=== PATIENT | female | born 1965 | race Caucasian/White ===

== ENCOUNTER → 2017-05-18 | Outpatient (CLI) | payer OTHER ==
[~2017-05-18] MED LIST: ALBIPROI; ALBU90OI; ALBU90OI6 INH; BUSP10 PO; CEPH500 PO; CREON PO; CRUTCH4 USE; DIAZ5; DIPATR PO; DORN1IH; DULO30 PO; FORM12IH; FROV2.5; HYDACE5 PO; HYDR1TAB94 PO; LORA1 PO; METF500 PO; NAPR220 PO; SERT100; UNISOM25 MG PO; [UNRECOGNIZED DRUG - OTHER]
== END ==
LOC: PLD 12:15 → LAB SHORT 12:15
DX: N95.0 Postmenopausal bleeding (principal)
CPT/HCPCS: 88305

== ENCOUNTER 2021-04-26 09:00 | Day surgery (SDC) | payer OTHER ==
[~2021-04-26] VITALS: Ht 175.3 cm; Wt 91.6 kg
[2021-04-26] MEDS ORDERED: SERT50 PO (09:28)
[2021-04-26] MEDS ORDERED: JANUMET XR 1001 EAC1 PO (09:28)
--- NOTE | 2021-04-26 13:47 | NUR ---
04/26/21 1347 [facility] MEDIPORT PLACEMENT CALL REQUEST AT 11:11. XRAY BY HÉCTOR. XRAY READ BY KINGSLEY Farooq AT 11:20 STATES PLACEMENT CORRECT. PT NPO UPTILL CALL GIVING OK. PT DC AT 11:45. END NOTE ORSC.RDS
== END 2021-04-26 11:45 | disposition home or self-care (01) ==
LOC: ORSCSDS 09:00
PROVIDERS: Surgery
PROC: B543ZZA Ultrasonography of Right Jugular Veins, Guidance (ICD-10-PCS; principal; 2021-04-26 10:00)
PROC: 05HM33Z Insertion of Infusion Device into Right Internal Jugular Vein, Percutaneous Approach (ICD-10-PCS; principal; 2021-04-26 10:00)
DX: C20 Malignant neoplasm of rectum (principal); G47.33 Obstructive sleep apnea (adult) (pediatric); E11.9 Type 2 diabetes mellitus without complications; F41.8 Other specified anxiety disorders; Z79.84 Long term (current) use of oral hypoglycemic drugs; Z79.899 Other long term (current) drug therapy
CPT/HCPCS: 77001; 82947; C1788; J0690; J1642; J1885; J2250; J3010; J7120

== ENCOUNTER 2022-05-20 09:52 | Inpatient (IN) | payer OTHER ==
[~2022-05-20] VITALS: Ht 175.3 cm; Wt 69.4 kg
[~2022-05-20 09:52] MED LIST changes: -BUSP10 PO; +Buspirone HCl15 MG PO; +JANUMET XR 1001 EAC1 PO; +SERT50 PO
[2022-05-20] MEDS ORDERED: Adipex-P37.5 M1 PO (10:19)
[2022-05-20] MEDS ORDERED: KALYDECO150 MG PO (10:21)
[2022-05-20] MEDS ORDERED: UNISOM PM PAIN1 EACH PO (10:21)
[2022-05-20 11:27] LABS: BASOPHILS ABSOLUTE AUTO 0.02 K/mm3 (0.00-0.23); BASOPHILS PERCENT AUTO 0 % (0-2); EOSINOPHILS ABSOLUTE AUTO 0.03 K/mm3 (0.00-0.68); EOSINOPHILS PERCENT AUTO 1 % (0-6); Hematocrit 31.7 % (33.0-51.0); Hemoglobin 9.7 g/dL (11.5-16.0); IMMATURE GRAN ABSOLUTE AUTO 0.04 K/mm3 (0.00-0.10); IMMATURE GRAN PERCENT AUTO 1 % (0-1); LYMPHOCYTES ABSOLUTE AUTO 0.69 K/mm3 (0.84-5.20); LYMPHOCYTES PERCENT AUTO 11 % (21-46); MONOCYTES ABSOLUTE AUTO 0.34 K/mm3 (0.16-1.47); MONOCYTES PERCENT AUTO 5 % (4-13); Mean Corpuscular HGB 23.2 pg (26.0-34.0); Mean Corpuscular HGB Conc 30.6 g/dL (31.5-36.5); Mean Corpuscular Volume 76 fL (80-100); Mean Platelet Volume 8.8 fL (9.1-12.4); NEUTROPHILS ABSOLUTE AUTO 5.13 K/mm3 (1.96-9.15); NEUTROPHILS PERCENT AUTO 82 % (41-73); Platelet Count 193 K/mm3 (150-400); RDW Coefficient Variation 17.4 % (11.7-14.2); RDW Standard Deviation 47.7 fL (35.1-46.3); Red Blood Cell Count 4.18 M/mm3 (3.80-5.20); White Blood Cell Count 6.25 K/mm3 (4.00-11.30)
[2022-05-20 11:39] LABS: Albumin, Blood 2.4 g/dL (3.4-5.0); Albumin/Globulin Ratio 0.5 (0.8-1.8); Bilirubin, Total 0.3 mg/dL (0.1-1.0); Bun/Creatinine Ratio 16.2 (12.0-20.0); Calcium, Blood 8.6 mg/dL (8.5-10.1); Creatinine, Blood 0.5 mg/dL (0.40-1.00); Globulin, Blood 5.2 g/dL (2.2-4.0); Potassium, Blood 3.7 mmol/L (3.5-5.5); Total Protein, Blood 7.6 g/dL (6.4-8.2)
[2022-05-20 12:11] LABS: International Normalized Ratio 1.26
--- NOTE | 2022-05-20 14:45 | NUR ---
ARRIVAL TO UNIT 4 PERSON SLIDE TO HOSPITAL BED. ASSESSMENT CHARTED. PLAN TO CONTACT ORTHO TO ADDRESS IF SURGERY TODAY OR PT CAN EAT. PLEASANT & UPBEAT. NO BRUISING TO R HIP. LACEY PP.
--- NOTE | 2022-05-20 18:36 | NUR ---
SHIFT SUMMARY SINCE ARRIVAL, PAIN HAS BEEN TOLERABLE. NON PRODUCTIVE COUGH. 4L NC. ORTHO CONSULTED. PLAN FOR OR TOMORROW.
[2022-05-21 02:31] LABS: Source, Urine Foley catheter
[2022-05-21 03:42] LABS: Appearance, Urine Clear (Clear); Color, Urine Yellow (P-Yellow)
[2022-05-21 03:44] LABS: Bilirubin, Urine Neg (Neg); Blood, Urine Neg (Neg); Glucose Qualitative, Urine Neg (Neg); Ketones, Urine Neg (Neg); Leukocyte Esterase, Urine Neg (Neg); Nitrite, Urine Neg (Neg); Protein, Urine Neg (Neg); Specific Gravity, Urine 1.015 (1.003-1.022); Urobilinogen, Urine NORM (Normal)
[2022-05-21 05:21] LABS: Hematocrit 29.6 % (33.0-51.0); Mean Corpuscular HGB 23.4 pg (26.0-34.0); Mean Corpuscular HGB Conc 30.4 g/dL (31.5-36.5); Mean Corpuscular Volume 77 fL (80-100); Mean Platelet Volume 8.9 fL (9.1-12.4); Platelet Count 169 K/mm3 (150-400); RDW Coefficient Variation 17.2 % (11.7-14.2); RDW Standard Deviation 47.8 fL (35.1-46.3); Red Blood Cell Count 3.84 M/mm3 (3.80-5.20); White Blood Cell Count 5.42 K/mm3 (4.00-11.30)
[2022-05-21 05:53] LABS: Bun/Creatinine Ratio 17.7 (12.0-20.0); Calcium, Blood 8.3 mg/dL (8.5-10.1); Creatinine, Blood 0.45 mg/dL (0.40-1.00); Potassium, Blood 3.8 mmol/L (3.5-5.5)
--- NOTE | 2022-05-21 06:27 | NUR ---
Patient given PRN pain meds. Patient states severe pain when moving, batista placed. Patient NPO at midnight, maint. fluid IV fluid started, preop CHG bath given. Patient states she is comfortable; slept well overnight. No acute safety concerns at this time.
--- NOTE | 2022-05-21 14:01 | NUR ---
Surgical site prepped with 2% Chlorhexidine cloth wipe. History, Chart, Medications and Allergies reviewed before start of procedure. Pre-Op teaching done. Pt verbalizes understanding. Patient confirms NPO status and agrees with scheduled surgery.
--- NOTE | 2022-05-21 16:31 | NUR ---
SHIFT SUMMARY: PATIENT JUST CAME BACK FROM PACU TODAY AT 1630. POD 0 RIGHT HIP NAILING PATIENT IS DROWSY BUT IS ABLE TO ANSWER QUESTIONS APPROPRIATELY WHEN ASKED. PATIENT DENIES PAIN AT THIS TIME. HER RIGHT HIP HAS 2 GAUZE WITH FOAM DRESSING THAT ARE C/D/I. SHE IS ABLE TO MOVE FINGERS AND TOES WHEN ASKED. DENIES ANY NEW NUMBNESS OR TINGLING (HX OF NEUROPATHY). SHE IS TOLERATING SMALL SIPS OF ICED WATER AT THIS TIME. FRIEND IS AT BEDSIDE. CALL LIGHT WITHIN REACH.
--- NOTE | 2022-05-22 05:33 | NUR ---
SHIFT SUMMARY PT POD 0 FOR RIGHT HIP NAILING. PT OVERALL HAS DONE WELL OVERNIGHT. SHE HAS SOME PAIN AT THE START OF THE SHIFT THAT WAS MANANGED WITH NORCO AND FLEXERIL. PT PRODUCING ADEQUATE URINE, STEWART IN PLACE DRAINING. PT TOLERATING PO INTAKE. POST OP VITALS STABLE. BULKY DRESSING INTACT. CALL LIGHT WITHIN REACH.
--- NOTE | 2022-05-22 16:34 | NUR ---
SHIFT SUMMARY PT A&OX4, VSS/2L-BASE, KASANDRA PO, STEWART PATENT & DRAINING YELLOW URINE/STAT LOCK ON/OFF FLOOR, STAND/PIVOT-SBA FWW & GB/UP TO CHAIR/WBAT, PAIN MANAGED WITH OXY 10 MG Q4 AND FLEXERIL. POD1 R HIP NAILING, BULKY DRESSING DRY/INTACT. WILL REPORT TO ONCOMING NOC RN.
--- NOTE | 2022-05-23 04:32 | NUR ---
SHIFT SUMMARY NO NEW ISSUES. PT COMPLAINS OF HIP AND NECK PAIN. PAIN TX PER EMAR WITH RELIEF. PT PROVIDED WITH ICE PACKD AND K PAD. PT SLEPT OFF AND ON THROUGHOUT THE SHIFT, PT REMAINS ON O2 AND DENIES SOB. CALL LIGHT IN REACH.
--- NOTE | 2022-05-23 16:25 | NUR ---
SHIFT SUMMARY PT A&OX4, VSS/2L NC BASELINE, KASANDRA PO, VOIDING, AMB SBA FWW & GB TO BRP/CHAIR AND IN HALLWAY, UP TO CHAIR T/O SHIFT, PAIN MANAGED WITH OXY 10 MG AND FLEXERIL 5 MG. POD2 R HIP NAILING, AQUACEL DRESSING APPLIED TODAY, TEDS ON, WBAT. WILL REPORT TO ONCOMING NOC RN.
--- NOTE | 2022-05-24 04:43 | NUR ---
SHIFT SUMMARY POD #3 R HIP NAILING, PATIENT IS AOX4, ABLE TO AMBULATE W/ 1 ASSIST, GB, FWW. TOLERATING PO INTAKE. AQUACEL X2 IN PLACE, C/D/I. IVF ARE RUNNING, TOLERATE PO INTAKE, VOIDING. MEDICATED FOR PAIN T/O SHIFT. DENIES N/V. VITALS STABLE. PLAN FOR DISCHARGE W/ HOME HEALTH. CALL LIGHT IN REACH, WILL REPORT TO DAY RN.
[2022-05-24] MEDS ORDERED: OXYC5 PO (10:02)
[2022-05-24] MEDS ORDERED: Cyclobenzaprine5 MG PO (10:02)
--- NOTE | 2022-05-24 12:30 | NUR ---
DISCHARGE PATIENT CLEARED TO D/C HOME WITH HOME HEALTH. POD 3 RIGHT HIP PINNING. 2 AQUACEL DRESSINGS TO R HIP, C/D/I. PAIN MANAGED PER EMAR. AMBULATING WELL TO BATHROOM 1P MIN ASSIST WITH FWW & GB. EATING, DRINKING, & VOIDING WELL. DISCUSSED DISCHARGE INSTRUCTIONS WITH PATIENT. EDUCATED ON AQUACEL DRESSINGS AND SENT WITH PATIENT. PATIENT AWAITING RIDE TO [employer].
--- NOTE | 2022-05-24 15:35 | NUR ---
ESCORTED OUT VIA W/C. SENT WITH AQUACEL DRESSINGS, DISCHARGE INSTRUCTIONS, AND PATIENTS PORTABLE O2.
== END 2022-05-24 15:30 | disposition home health service (06) | DRG 481 ==
LOC: ER 09:52 → SURS 12:38
PROVIDERS: Nurse Practitioner Acute Care; Orthopaedic Surgery; Student in an Organized Health Care Education/Training Program; ADMIT Internal Medicine
PROC: 0QS636Z Reposition Right Upper Femur with Intramedullary Internal Fixation Device, Percutaneous Approach (ICD-10-PCS; principal; 2022-05-21 14:00)
DX: S72.144A Nondisplaced intertrochanteric fracture of right femur, initial encounter for closed fracture (principal); E84.9 Cystic fibrosis, unspecified; Z28.21 Immunization not carried out because of patient refusal; K58.9 Irritable bowel syndrome, unspecified; E11.9 Type 2 diabetes mellitus without complications; F41.9 Anxiety disorder, unspecified; K74.60 Unspecified cirrhosis of liver; G89.29 Other chronic pain; K75.81 Nonalcoholic steatohepatitis (NASH); M50.323 Other cervical disc degeneration at C6-C7 level; J45.909 Unspecified asthma, uncomplicated; Z85.048 Personal history of other malignant neoplasm of rectum, rectosigmoid junction, and anus; Z92.3 Personal history of irradiation; Z92.21 Personal history of antineoplastic chemotherapy; Z90.49 Acquired absence of other specified parts of digestive tract; Z98.890 Other specified postprocedural states; Z88.2 Allergy status to sulfonamides; Z79.899 Other long term (current) drug therapy; W01.0XXA Fall on same level from slipping, tripping and stumbling without subsequent striking against object, initial encounter; Y92.009 Unspecified place in unspecified non-institutional (private) residence as the place of occurrence of the external cause
CPT/HCPCS: 36415; 72040; 73502; 73552; 73700; 80048; 80053; 81003; 82947; 85025; 85027; 85610; 85730; 93005; 93010; 94760; 96374; 96375; 96376; 97110; 97116; 97162; 97530; 99285-25; A9270; J0690; J1170; J1885; J2250; J2704; J3010; J7030; J7050; J7120

== ENCOUNTER 2022-06-06 12:27 | Inpatient (IN) | payer OTHER ==
[~2022-06-06] VITALS: Ht 167.6 cm; Wt 66.3 kg
[~2022-06-06 12:27] MED LIST changes: +Adipex-P37.5 M1 PO; +Cyclobenzaprine5 MG PO; +KALYDECO150 MG PO; +OXYC5 PO; +UNISOM PM PAIN1 EACH PO
[2022-06-06 12:44] LABS: Bicarbonate Venous 29.8 mmol/L (24.0-30.0); PCO2 Venous 81.6 mmHg (38-42)
[2022-06-06 12:45] LABS: pH Blood Venous 7.25 (7.34-7.37)
[2022-06-06 13:08] LABS: Hematocrit 31.6 % (33.0-51.0); Hemoglobin 9.4 g/dL (11.5-16.0); Mean Corpuscular HGB 23.2 pg (26.0-34.0); Mean Corpuscular HGB Conc 29.7 g/dL (31.5-36.5); Mean Corpuscular Volume 78 fL (80-100); Mean Platelet Volume 8.7 fL (9.1-12.4); NRBC ABSOLUTE 0.02 K/mm3 (0.00-0.02); NRBC Auto 0.2 /100 WBC (0.0-0.2); Platelet Count 281 K/mm3 (150-400); RDW Coefficient Variation 16.8 % (11.7-14.2); RDW Standard Deviation 47.8 fL (35.1-46.3); Red Blood Cell Count 4.06 M/mm3 (3.80-5.20); White Blood Cell Count 11.15 K/mm3 (4.00-11.30)
[2022-06-06 13:33] LABS: Albumin/Globulin Ratio 0.3 (0.8-1.8); Bilirubin, Total 1.1 mg/dL (0.1-1.0); Bun/Creatinine Ratio 30.9 (12.0-20.0); Calcium, Blood 9.3 mg/dL (8.5-10.1); Creatinine, Blood 0.42 mg/dL (0.40-1.00); Globulin, Blood 5.8 g/dL (2.2-4.0); Total Protein, Blood 7.8 g/dL (6.4-8.2)
[2022-06-06 13:44] LABS: BAND PERCENT MAN 60 % (0-8); BASOPHILS PERCENT MAN 0 % (0-2); EOSINOPHILS PERCENT MAN 0 % (0-6); LYMPHOCYTES ABSOLUTE MAN 1.44 K/mm3 (0.84-5.20); LYMPHOCYTES PERCENT MAN 13 % (21-46); METAMYELOCYTE ABSOLUTE MAN 0.11 K/mm3 (0.00-0.00); METAMYELOCYTE PERCENT MAN 1 % (0-0); MONOCYTES ABSOLUTE MAN 0.55 K/mm3 (0.16-1.47); MONOCYTES PERCENT MAN 5 % (4-13); NEUTROPHILS ABSOLUTE MAN 9.03 K/mm3 (1.96-9.15); SEG NEUTROPHILS PERCENT MAN 21 % (41-73); TOTAL CELLS COUNTED 100
[2022-06-06 14:32] LABS: Influenza A, PCR NEGATIVE (NEGATIVE); Influenza B, PCR NEGATIVE (NEGATIVE); Resp Syncytial Virus, PCR NEGATIVE (NEGATIVE)
[2022-06-06 14:37] LABS: SARS-Cov-2 (COVID-19) PCR, MMC POSITIVE (NEGATIVE)
[2022-06-06 15:21] LABS: Base Excess Venous 9.7 mmol/L; Bicarbonate Venous 31.4 mmol/L (24.0-30.0); pH Blood Venous 7.28 (7.34-7.37)
[2022-06-06 17:47] LABS: Source, Urine Foley catheter
[2022-06-06 17:57] LABS: Appearance, Urine Clear (Clear); Bilirubin, Urine Neg (Neg); Blood, Urine 2+ (Neg); Color, Urine Yellow (P-Yellow); Glucose Qualitative, Urine Neg (Neg); Ketones, Urine 1+ (Neg); Leukocyte Esterase, Urine Neg (Neg); Nitrite, Urine Neg (Neg); Protein, Urine 1+ (Neg); Urobilinogen, Urine 2+ (Normal)
[2022-06-06 18:16] LABS: Base Excess Venous 6.9 mmol/L; Bicarbonate Venous 29.5 mmol/L (24.0-30.0)
[2022-06-06 18:17] LABS: pH Blood Venous 7.28 (7.34-7.37)
[2022-06-06 18:32] LABS: Bacteria Many /hpf; Red Blood Cells, Urine 0-2 /hpf (0-2); Squamous Epithelial Cells Few /hpf (Few)
--- NOTE | 2022-06-06 19:13 | NUR ---
PT ARRIVED TO UNIT @ 1700 LETHARGIC RR IN THE 40S AND HR IN THE 120S TO 140 AND BECAME RESTLESS TRYING TO TAKE OFF BIPAP. DR WAS MADE AWARE AND PT WAS INTUBATED. SKIN ON ADMISSIN TO UNIT EXCORIATION NOTED ON COCCYX AND MELISSA TO HER RIGHT HIP. PT RESTING ON VENTILATOR REPORT GIVEN TO ON COMING NURSE.
[2022-06-07 04:53] LABS: Hematocrit 24.4 % (33.0-51.0); Hemoglobin 7.5 g/dL (11.5-16.0); Mean Corpuscular HGB 23.4 pg (26.0-34.0); Mean Corpuscular HGB Conc 30.7 g/dL (31.5-36.5); Mean Corpuscular Volume 76 fL (80-100); Mean Platelet Volume 9.1 fL (9.1-12.4); Platelet Count 188 K/mm3 (150-400); RDW Coefficient Variation 17.1 % (11.7-14.2); RDW Standard Deviation 47.5 fL (35.1-46.3); Red Blood Cell Count 3.21 M/mm3 (3.80-5.20); White Blood Cell Count 8.76 K/mm3 (4.00-11.30)
[2022-06-07 05:14] LABS: Albumin, Blood 1.5 g/dL (3.4-5.0); Albumin/Globulin Ratio 0.3 (0.8-1.8); Bilirubin, Direct 0.6 mg/dL (0.0-0.3); Bilirubin, Indirect 0.2 mg/dL (0.1-0.7); Bilirubin, Total 0.8 mg/dL (0.1-1.0); Bun/Creatinine Ratio 36.1 (12.0-20.0); Calcium, Blood 8.4 mg/dL (8.5-10.1); Creatinine, Blood 0.42 mg/dL (0.40-1.00); Globulin, Blood 4.7 g/dL (2.2-4.0); Phosphorus, Blood 2.4 mg/dL (2.5-4.9); Potassium, Blood 3.7 mmol/L (3.5-5.5); Total Protein, Blood 6.2 g/dL (6.4-8.2)
[2022-06-07 05:40] LABS: BAND PERCENT MAN 25 % (0-8); BASOPHILS PERCENT MAN 0 % (0-2); EOSINOPHILS PERCENT MAN 0 % (0-6); LYMPHOCYTES ABSOLUTE MAN 0.17 K/mm3 (0.84-5.20); LYMPHOCYTES PERCENT MAN 2 % (21-46); METAMYELOCYTE ABSOLUTE MAN 0.17 K/mm3 (0.00-0.00); METAMYELOCYTE PERCENT MAN 2 % (0-0); MONOCYTES ABSOLUTE MAN 0.52 K/mm3 (0.16-1.47); MONOCYTES PERCENT MAN 6 % (4-13); MYELOCYTE ABSOLUTE MAN 0.08 K/mm3 (0.00-0.00); MYELOCYTE PERCENT MAN 1 % (0-0); NEUTROPHILS ABSOLUTE MAN 7.79 K/mm3 (1.96-9.15); SEG NEUTROPHILS PERCENT MAN 64 % (41-73); TOTAL CELLS COUNTED 100
--- NOTE | 2022-06-07 06:45 | NUR ---
SHIFT SUMMARY NO ACUTE CHANGES DURING SHIFT. REMAINS INTUBATED- AC/VC+ 24/400/8/50%. SEDATED WITH PROPOFOL AT 40MCG/KG/MIN. NOT FOLLOWING COMMANDS. BILATERAL SOFT WRIST RESTRAINTS IN PLACE TO PREVENT SELF-EXTUBATION. MONITOR SHOWS ST, RATE 100-120S T/O NOC. BP STABLE WITH LEVOPHED- NOW INFUSING AT 2MCG/MIN. NS INFUSING AT 125MLS/HR. OG WITH PIVOT 1.5 AT 30MLS/HR (GOAL IS 40MLs/HR). INCONTINENT OF LOOSE STOOL X 2. STEWART PATENT AND DRAINING TO GRAVITY. RIGHT HIP WITH MELISSA INTACT. MEDIPORT TO RIGHT CHEST ACCESSED. REMAINS IN ISOLATION FOR COVID-19. WILL REPORT TO ONCOMING RN WHEN AVAILABLE.
--- NOTE | 2022-06-07 07:31 | NUR ---
ASSUMED CARE: PT INTUBATED AND SEDATED. VENT SETTINGS AC/VC+ AT 24/400/8/50%. SATURATING 95% WITH THIS. SINUS TACH AT 112 AT THIS TIME. OG IN PLACE WITH TF RUNNING. TEMP STEWART WITH CLEAR YELLOW URINE DRAINING. SEDATED WITH 40MCG/KG/MIN PROPOFOL. LEVOPHED INFUSING AT 2MCG/MIN FOR MAP GREATER THAN 65. ALSO RECEIVING NS AT 125/HR. ADMINISTERED 2MG ATIVAN THIS AM FOR AGITATION. NO FURTHER NEEDS AT THIS TIME.
--- NOTE | 2022-06-07 09:40 | NUR ---
SEDATION VACATION: PROPOFOL TITRATED DOWN TO 20MCG/KG/MIN. PT BEGAN TO RAISE EYE BROW WHEN NAME WAS CALLED, GRIMACED TO NOXIOUS STIMULI. DID NOT FOLLOW COMMANDS. PT BECAME AGITATED, RAISING HEAD AND SHOULDERS OUT OF BED WITH THIS SO SEDATION WAS NOT DECREASED ANY FURTHER. DR HENRIQUEZ AWARE OF RESULT AND PROPOFOL RETURNED TO 40MCG/KG/MIN.
[2022-06-07 11:08] LABS: PCO2 Arterial 55.8 mmHg (35-45); PO2 Arterial 65.7 mmHg (80-100); pH Blood Arterial 7.39 (7.35-7.45)
--- NOTE | 2022-06-07 19:11 | NUR ---
SHIFT SUMMARY: PT REMAINS INTUBATED AND SEDATED. VENT SETTINGS AC/VC+24/350/8/60%. PROPOFOL AT 40MCG/KG/MIN. LEVOPHED OFF. BPS SOFT BUT MAP STABLE. TF AT GOAL WITHOUT DISTRESS NOTED. STEWART IN PLACE DRAINING DARK URINE. FAMILY WAS AT BEDSIDE THIS SHIFT AND UPDATED ON STATUS.
--- NOTE | 2022-06-08 02:20 | NUR ---
DECREASED SATS SATS DECREASED TO HIGH 70s TO LOW 80s. RT AND RN AT BEDSIDE. SUCTIONED FOR SMALL AMOUNT OF THICK SECRETIONS. LUNGS WITH RHONCHI T/O. PEEP INCREASED TO 15 AND FIO2 AT 100% WITH NO INCREASE IN SATURATIONS. RT BAGGED PT WITH SLIGHT INCREASE IN SATS NOTED. AT 0240, DR. HENRIQUEZ NOTIFIED AND NEW ORDERS RECEIVED TO DO STAT CHEST XRAY AND PRONE PATIENT.
--- NOTE | 2022-06-08 03:20 | NUR ---
PRONE/NIMBEX PT PRONED AT 0300. NIMBEX STARTED AT 2MCG/KG/MIN. BIS MONITOR ON AT THIS TIME- BIS 43. PROPOFOL CONTINUES AT 40MCG/KG/MIN. SATS CONTINUE IN UPPER 70s AT THIS TIME.
--- NOTE | 2022-06-08 04:05 | NUR ---
MD UPDATE DR. HENRIQUEZ UPDATED ON PT'S STATUS AND OF CONTINUED SATS IN THE 70s. NO NEW ORDERS AT THIS TIME.
[2022-06-08 04:16] LABS: Hematocrit 31.4 % (33.0-51.0); Hemoglobin 8.9 g/dL (11.5-16.0); Mean Corpuscular HGB 22.9 pg (26.0-34.0); Mean Corpuscular HGB Conc 28.3 g/dL (31.5-36.5); Mean Platelet Volume 9.2 fL (9.1-12.4); NRBC ABSOLUTE 0.08 K/mm3 (0.00-0.02); NRBC Auto 0.5 /100 WBC (0.0-0.2); Platelet Count 216 K/mm3 (150-400); RDW Coefficient Variation 17.6 % (11.7-14.2); RDW Standard Deviation 51.3 fL (35.1-46.3); Red Blood Cell Count 3.88 M/mm3 (3.80-5.20); White Blood Cell Count 17.69 K/mm3 (4.00-11.30)
[2022-06-08 04:30] LABS: Mean Corpuscular Volume 81 fL (80-100)
[2022-06-08 04:51] LABS: Bun/Creatinine Ratio 29.5 (12.0-20.0); Calcium, Blood 9.2 mg/dL (8.5-10.1); Creatinine, Blood 0.51 mg/dL (0.40-1.00); Magnesium, Blood 2.2 mg/dL (1.6-2.4); Phosphorus, Blood 4.2 mg/dL (2.5-4.9); Potassium, Blood 4.2 mmol/L (3.5-5.5)
--- NOTE | 2022-06-08 05:32 | NUR ---
CALL TO FAMILY MULTIPLE PHONE CALLS TO HAVE BEEN MADE SINCE PRONING PATIENT- NO ANSWER. MESSAGE WAS LEFT AND FRIEND, MARIAN, WAS NOTIFIED. AT THIS TIME, MARIAN AND PT'S SISTER, SHAHLA, ARE AT BEDSIDE AND HAVE BEEN UPDATED ON PT'S CONDITION.
[2022-06-08 05:54] LABS: BAND PERCENT MAN 37 % (0-8); BASOPHILS PERCENT MAN 0 % (0-2); EOSINOPHILS PERCENT MAN 0 % (0-6); LYMPHOCYTES PERCENT MAN 4 % (21-46); METAMYELOCYTE ABSOLUTE MAN 0.35 K/mm3 (0.00-0.00); METAMYELOCYTE PERCENT MAN 2 % (0-0); MONOCYTES ABSOLUTE MAN 0.35 K/mm3 (0.16-1.47); MONOCYTES PERCENT MAN 2 % (4-13); MYELOCYTE ABSOLUTE MAN 0.53 K/mm3 (0.00-0.00); MYELOCYTE PERCENT MAN 3 % (0-0); NEUTROPHILS ABSOLUTE MAN 15.74 K/mm3 (1.96-9.15); SEG NEUTROPHILS PERCENT MAN 52 % (41-73); TOTAL CELLS COUNTED 100
--- NOTE | 2022-06-08 06:00 | NUR ---
DESATURATION/REPOSITION/SHIFT SUMMARY O2 SATS LOW 50s AT THIS TIME AND HR DECREASING. PT CHANGED BACK TO SUPINE AT THIS TIME IN ANTICIPATION OF FURTHER DECLINE AND CARDIAC ARREST. SATS INCREASE TO HIGH 60'S- LOW 70s ONCE SUPINE. FAMILY/FRIEND STILL AT BEDSIDE. STILL UNABLE TO CONTACT SPOUSE. HR 120s-130s T/O NOC. LEVOPHED STARTED THIS AM TO MAINTAIN MAP >65. NOW INFUSING AT 20MCG/MIN. NIMBEX STARTED FOR VENT COMPLIANCE- NOW AT 3MCG/KG/MIN. PROPOFOL NOW AT 30MCG/KG/MIN. BIS 30s-40s. PIVOT 1.5 AT GOAL RATE OF 40MLS/HR. NO S/S OF GI INTOLERANCE. STEWART PATENT AND DRAINING TO GRAVITY. INCONTINENT OF LOOSE STOOL X 1. VENT SETTINGS NOW AC/VC+ RATE 24, TV 400, PEEP 15, FIO2 100%. NS INFUSING AT 125MLS/HR.
--- NOTE | 2022-06-08 07:57 | NUR ---
ATTEMPTED TO CALL PT'S DON, BUT HE DID NOT ANSWER THE PHONE. SHIPYARD PAINTER HELPER REPORTED THEY LEFT A MESSAGE ON HIS VM AND HAVE TRIED SEVERAL TIMES TO CONTACT HIM WELL. PT'S SISTER AND FRIEND AT THE BEDSIDE. THEY REPORT THEY HAVE BEEN TRYING TO CALL HIM ALSO. PT'S FRIEND SAYS THAT DON TENDS TO IGNORE CALLS WHEN HE IS HAVING TROUBLE COPING AND WON'T TALK TO ANYONE UNTIL HE IS READY. PT'S FRIEND'S IS GOING TO DRIVE OUT TO DON'S RESIDENCE TO SEE IF HE CAN WAKE HIM UP, BUT THE FRIEND DOES NOT EXPRESS MUCH HOPE IN THAT EVEN WORKING. SHE SAYS HIS BEDROOM IS ON THE 2ND FLOOR. DR. HENRIQUEZ DISCUSSED CODE STATUS WITH PT'S SISTER AND FRIEND AND THEY BOTH REPORT THAT LEADING UP TO PT'S MOST RECENT SURGERY, SHE SAID THAT SHE DID NOT WANT CPR OR EXTREME MEASURES IF SHE WASN'T GETTING BETTER. BOTH PT'S SISTER AND FRIEND AGREE PT WOULD NOT WANT CPR IN THIS SITUATION.
[2022-06-08 08:19] LABS: Vancomycin, Trough 9.9 ug/mL (5.0-10.0)
--- NOTE | 2022-06-08 08:52 | NUR ---
PT'S SPO2 WAS IN THE 50S UPON ASSUMING CARE AND HAS CONTINUED TO DROP SINCE THEN. DR. HENRIQUEZ IS AWARE AND HAS ATTEMPTED ADJUSTING THE VENTILATOR WITH NO BENEFIT. DR. HENRIQUEZ SPOKE WITH THE FAMILY AT THE BEDSIDE INFORMING THAT PT IS RECEIVING FULL CARE, BUT THERE IS NOTHING LEFT TO ADD. PT'S FAMILY WAS TEARFUL BUT UNDERSTOOD. PT'S HR IS NOW DROPPING IN TO THE 50S. SPOKE WITH FAMILY AT THE BEDSIDE INFORMING THEM OF ANTICIPATED . STAYING IN ROOM TO PROVIDE SUPPORT.
--- NOTE | 2022-06-08 09:14 | NUR ---
PT'S HEART STOPPED AT 0900. MONITOR STILL SHOWED A FEW AGONAL BEATS, BUT NO HEARTBEAT AUSCULTATED, NO PUPILLARY REACTION, AND NO SPONTANEOUS BREATHS WHEN VENTILATOR PAUSED. PT'S SISTER AND FRIEND AT THE BEDSIDE AND TOLD THAT PT HAD PASSED. THEY REQUESTED ETT REMOVED SO PT EXTUBATED THEN THEY WERE GIVEN SOME TIME ALONE WITH PT. CALLED PT'S , DON, AND HE ACTUALLY ANSWERED. INFORMED HIM OF ALL THE EVENTS OVERNIGHT AND OF PT'S PASSING. HE APPEARED TO TAKE THE NEWS APPROPRIATELY. HE ASKED FOR PT'S VIVIANE FONSECA TO CALL HIM TO DISCUSS HOME. AFTER TALKING WITH HIM, MARIAN SAID THEY DECIDED ON [facility].
== END 2022-06-08 11:09 | DRG 871 ==
LOC: ER 12:27 → ICUW 16:10
PROVIDERS: Emergency Medicine; Internal Medicine Critical Care Medicine; Nurse Practitioner Acute Care; ADMIT Internal Medicine
PROC: XW033E5 Introduction of Remdesivir Anti-infective into Peripheral Vein, Percutaneous Approach, New Technology Group 5 (ICD-10-PCS; principal; 2022-06-06)
PROC: 3E0333Z Introduction of Anti-inflammatory into Peripheral Vein, Percutaneous Approach (ICD-10-PCS; 2022-06-06)
PROC: XW0DXM6 Introduction of Baricitinib into Mouth and Pharynx, External Approach, New Technology Group 6 (ICD-10-PCS; 2022-06-06)
PROC: 02HV33Z Insertion of Infusion Device into Superior Vena Cava, Percutaneous Approach (ICD-10-PCS; 2022-06-06)
PROC: 0BH18EZ Insertion of Endotracheal Airway into Trachea, Via Natural or Artificial Opening Endoscopic (ICD-10-PCS; 2022-06-06)
PROC: 3E033XZ Introduction of Vasopressor into Peripheral Vein, Percutaneous Approach (ICD-10-PCS; 2022-06-06)
PROC: 3E03329 Introduction of Other Anti-infective into Peripheral Vein, Percutaneous Approach (ICD-10-PCS; 2022-06-06)
PROC: 8E0ZXY6 Isolation (ICD-10-PCS; 2022-06-06)
PROC: 5A1945Z Respiratory Ventilation, 24-96 Consecutive Hours (ICD-10-PCS; 2022-06-06)
PROC: 5A09357 Assistance with Respiratory Ventilation, Less than 24 Consecutive Hours, Continuous Positive Airway Pressure (ICD-10-PCS; 2022-06-06)
DX: A41.01 Sepsis due to Methicillin susceptible Staphylococcus aureus (principal); G92.8 Other toxic encephalopathy; J96.02 Acute respiratory failure with hypercapnia; J18.9 Pneumonia, unspecified organism; U07.1 COVID-19; J96.01 Acute respiratory failure with hypoxia; E84.9 Cystic fibrosis, unspecified; Z51.5 Encounter for palliative care; Z66 Do not resuscitate; R65.20 Severe sepsis without septic shock; Z78.1 Physical restraint status; K74.60 Unspecified cirrhosis of liver; Z88.2 Allergy status to sulfonamides; Z79.84 Long term (current) use of oral hypoglycemic drugs; Z79.899 Other long term (current) drug therapy
CPT/HCPCS: 0241U; 31500; 36415; 36600; 51702; 71045; 71260; 80048; 80053; 80202; 81001; 82248; 82330; 82803; 82947; 83605; 83735; 83880; 84100; 84484; 85025; 87040; 87070; 87077; 87086; 87147; 87186; 87205; 93005; 93010; 94002; 94003; 94640; 94660; 94664; 94760; 96361; 96374-59; 96375-59; 96376-59; 99291-25; A9270; C9113; C9399; J0248; J0692; J1100; J1650; J2060; J2704; J3370; J7030; J7050; J7060; Q9967